=== PATIENT | male | born 1955 | race Caucasian/White ===

== ENCOUNTER 2023-01-16 13:55 | Outpatient (REF) | payer MEDICARE, SELFPAY ==
[2023-01-16 16:54] LABS: Abs Immature Grans 0.02 10^3/uL (0.0-0.06); Absolute Basophil Count 0.03 10^3/uL (0.0-0.2); Absolute Eosinophil Count 0.15 10^3/uL (0.0-0.7); Absolute Lymphocyte Count 1.67 10^3/uL (1.2-3.4); Absolute Monocyte Count 0.59 10^3/uL (0.1-0.8); Absolute Neutrophil Count 4.74 10^3/uL (1.2-6.7); Basophils % 0.4; Eosinophils % 2.1; HCT 49.4 % (40.0-50.0); HGB 16.6 g/dL (13.5-17.5); Immature Grans % 0.3; Lymphocytes % 23.2; MCH 31.7 pg (27.0-33.0); MCHC 33.6 % (32.0-36.0); MCV 95 fL (80-95); Monocytes % 8.2; Neutrophils % 65.8; Platelet Count 275 10^3/uL (130-400); RBC 5.23 10^6/uL (4.36-5.78); RDW 13.5 % (11.8-14.1); RDW-SD 47.4 fL
[2023-01-16 17:26] LABS: ALT 26 U/L (16-63); AST 25 U/L (15-37); Albumin 3.4 g/dL (3.4-5.0); Alkaline Phosphatase 96 U/L (46-116); Anion Gap 8.8 mmol/L (3-11); BUN 15 mg/dL (7-18); Bilirubin, Total 0.4 mg/dL (0.2-1.0); CO2 27.2 mmol/L (21.0-32.0); CREATININE 1.2 mg/dL (0.70-1.30); Calcium 8.9 mg/dL (8.5-10.1); Calculated LDL 72 mg/dL (<100); Chloride 103 mmol/L (98-107); Cholesterol 195 mg/dL (<200); Glucose 91 mg/dL (74-106); HDL Cholesterol 84 mg/dL (40-60); Potassium 4.8 mmol/L (3.5-5.1); Sodium 139 mmol/L (136-145); TSH (W/Ref FT4) 0.79 uIU/mL (0.36-3.74); Total Protein 6.5 g/dL (6.4-8.2); Triglyceride 197 mg/dL (<150)
[2023-01-16 18:03] LABS: Vitamin D 25 Total 33.9 ng/mL (30-100)
== END 2023-01-16 13:56 | disposition home or self-care (01) ==
LOC: NCHCN 13:55
PROVIDERS: Visit Provider Nurse Practitioner Family
DX: R03.0 Elevated blood-pressure reading, without diagnosis of hypertension (principal); Z00.00 Encounter for general adult medical examination without abnormal findings
CPT/HCPCS: 80053; 80061; 82306; 84443; 85025